=== PATIENT | male | born 1960 | race Caucasian/White ===

== ENCOUNTER 2021-05-02 09:17 | Emergency (ER) | payer BC ==
[2021-05-02] MEDS ORDERED: IBUPROFEN 600 MG TAB PO STA (11:00)
[2021-05-02] MEDS ORDERED: ACETAMINOPHEN TAB 500 MG TAB PO STA (11:00)
--- NOTE | 2021-05-02 11:02 | ED ---
General Adult HPI - General Chief complaint: Upper Respiratory Infection Stated complaint: Covid + Time Seen by Provider: 05/02/21 09:55 Source: patient Mode of arrival: ambulatory Limitations: no limitations - History of Present Illness Initial comments: 60-year-old male presents to the emergency room for antibody infusion. Patient reports he developed symptoms of COVID-19 last Saturday or about 5 days ago. States that he tested positive over the weekend at urgent care. Patient states that he just doesn't seem to be getting better and heard the infusion could help. Patient denies shortness of breath. He has cough and congestion. He has body aches. He has not had Motrin or Tylenol today.Patient has no other complaints at this time including shortness of breath, chest pain, abdominal pain, nausea or vomiting, headache, or visual changes. - Related Data Home Medications Medication Instructions Recorded Confirmed No Known Home Medications 05/02/21 05/02/21 Allergies Allergy/AdvReac Type Severity Reaction Status Date / Time No Known Allergies Allergy Verified 05/02/21 10:40 Review of Systems ROS Statement: Those systems with pertinent positive or pertinent negative responses have been documented in the HPI. ROS Other: All systems not noted in ROS Statement are negative. Past Medical History Past Medical History: No Reported History History of Any Multi-Drug Resistant Organisms: None Reported Past Surgical History: No Surgical Hx Reported Past Psychological History: No Psychological Hx Reported Smoking Status: Current every day smoker Past Alcohol Use History: Rare Past Drug Use History: None Reported General Exam Limitations: no limitations General appearance: alert, in no apparent distress Head exam: Present: atraumatic Eye exam: Present: normal appearance, PERRL, EOMI. Absent: scleral icterus, conjunctival injection ENT exam: Present: normal exam, mucous membranes moist Neck exam: Present: normal inspection, full ROM. Absent: tenderness Respiratory exam: Present: normal lung sounds bilaterally. Absent: respiratory distress, wheezes Cardiovascular Exam: Present: regular rate, normal rhythm, normal heart sounds Course Vital Signs 05/02/21 09:44 Temperature 100.8 F H Pulse Rate 94 Respiratory 18 Rate Blood Pressure 126/81 O2 Sat by Pulse 98 Oximetry Medical Decision Making - Medical Decision Making Vitals are stable. Patient given Motrin and Tylenol for fever. Well-appearing on exam. Antibody infusion ordered and patient given it. Monitored for an hour afterwards. Discussed strict return parameters and follow up with his doctor. Disposition Clinical Impression: COVID Disposition: HOME SELF-CARE Condition: Good Instructions (If sedation given, give patient instructions): Coronavirus Disease 2019 (COVID-19) Additional Instructions: please follow-up with your doctor in one to 2 days. Take Motrin and Tylenol for pain. Drink plenty of fluids. Return to the emergency room for any worsening symptoms. Is patient prescribed a controlled substance at d/c from ED?: No Referrals: Torri Duvall MD [REFERRING] - 1-2 days Time of Disposition: 11:01
[2021-05-02] MEDS ORDERED: BAMLANIVIMAB (EUA) 700 MG, ETESEVIMAB (EUA) 1,400 MG in SODIUM CHLORIDE 0.9% 50 ML IVPB ONE (11:15)
[2021-05-02] MEDS ORDERED: SODIUM CHLORIDE 0.9% 50 ML IVPB ONE (11:15)
[2021-05-02 13:10] VITALS: BP 113/68; PULSE 76; RESP 18; TEMP 98.8
== END 2021-05-02 13:13 | disposition home or self-care (01) ==
LOC: EC 09:17
DX: U07.1 COVID-19 (principal); F17.200 Nicotine dependence, unspecified, uncomplicated
CPT/HCPCS: 99283; J3490

== ENCOUNTER 2021-08-01 01:14 | Observation (INO) | payer BC ==
[2021-08-01] MEDS ORDERED: MORPHINE SULFATE 4 MG/ML SYRINGE IV STA (05:43)
[2021-08-01 06:08] LABS: Basophils # (A) 0.1 k/uL (0-0.2); Basophils % (A) 1 %; Eosinophils # (A) 0.6 k/uL (0-0.7); Eosinophils % (A) 8 %; HCT 46.7 % (39.0-53.0); Lymphocytes % (A) 14 %; MCH 31.9 pg (25.0-35.0); MCHC 34.2 g/dL (31.0-37.0); MCV 93.3 fL (80.0-100.0); Mean Platelet Volume 8.9; Monocytes # (A) 0.5 k/uL (0-1.0); Monocytes % (A) 6 %; Neutrophils % (A) 70 %; Platelet Count 197 k/uL (150-450); RDW 12.1 % (11.5-15.5); WBC 7.1 k/uL (3.8-10.6)
--- NOTE | 2021-08-01 06:16 | CT ---
EXAMINATION TYPE: CT abdomen pelvis wo con DATE OF EXAM: 08/01/2021 HISTORY: abdominal pain, LLQ CT DLP: 579.5 mGycm. Automated Exposure Control for Dose Reduction was Utilized. TECHNIQUE: CT scan of the abdomen and pelvis is performed without oral or IV contrast. COMPARISON: NONE FINDINGS: Within the limitations of a non-contrast study, the following observations are made. LUNG BASES: No significant abnormality is appreciated. LIVER/GB: No significant abnormality is appreciated. PANCREAS: No significant abnormality is seen. SPLEEN: No significant abnormality is seen. ADRENALS: No significant abnormality is seen. KIDNEYS: No renal stones or hydronephrosis is seen bilaterally. BOWEL: Evaluation of bowel slightly suboptimal due to lack of enteric contrast. Stomach slightly subo ptimally evaluated due to poor distention. No suspicious small or large bowel dilatation is seen. Ter [place] ileum appears within normal limits coronal image 40. Normal-appearing appendix inferiorly from base of cecum identified. There are few diverticula in the sigmoid colon. GENITAL ORGANS: No gross abnormality seen. LYMPH NODES: No greater than 1cm abdominal or pelvic lymph nodes are appreciated. OSSEOUS STRUCTURES: [id number] multilevel spurring in the spine. OTHER: There is moderate to large size fat-containing inguinal hernia containing fat and tiny mesente hugh vessels. There is mild to moderate ill-defined fluid and fat stranding beginning below the level of the proximal sigmoid colon extending along the entire course of the inguinal hernia. No free air i s seen. No well-formed fluid collection or abscess noted. Small to moderate-sized fat-containing right inguinal hernia is present without fat stranding. IMPRESSION: Moderate to large size left inguinal hernia containing moderate fat stranding extending u p to level of the proximal sigmoid colon. One must consider incarceration or strangulation given pauline ent's symptoms.
[2021-08-01 06:26] LABS: ALT 35 U/L (4-49); AST 36 U/L (17-59); African American GFR (CKD) >90 (>60 ml/min/1.73 sqM); Albumin 4.7 g/dL (3.5-5.0); Alkaline Phosphatase 70 U/L (38-126); Amylase 47 U/L (30-110); Anion Gap 10 mmol/L; Blood Urea Nitrogen 15 mg/dL (9-20); Calcium 9.3 mg/dL (8.4-10.2); Carbon Dioxide 22 mmol/L (22-30); Chloride 108 mmol/L (98-107); Glucose 129 mg/dL (74-99); Lipase 106 U/L (23-300); Non-African American GFR(CKD) >90 (>60 ml/min/1.73 sqM); Potassium 4.6 mmol/L (3.5-5.1); Sodium 140 mmol/L (137-145)
[2021-08-01 07:28] LABS: C Reactive Protein 0.8 mg/dL (<1.0)
[2021-08-01] MEDS ORDERED: KETOROLAC 15 MG/ML 1 ML VIAL IVP STA (07:42)
[2021-08-01] MEDS ORDERED: SODIUM CHLORIDE 0.9% 1,000 ML IV ONE (07:53)
--- NOTE | 2021-08-01 08:01 | P.GSHP ---
History of Present Illness H&P Date: 08/01/21 Chief Complaint: Left sided abdominal pain This is a 60-year-old male who presented to the emergency room complaints of left-sided abdominal pain. Patient thought he was having a diverticulitis attack. Patient states he had pain for several days. He was started on Augment in by his family doctor. The pain persisted. Patient underwent CAT scan is found have an incarcerated left inguinal hernia with incarcerated fat within the hernia. Patient states he has left groin pain and left abdominal pain Past Medical History Past Medical History: No Reported History Additional Past Medical History / Comment(s): Diverticulitis History of Any Multi-Drug Resistant Organisms: None Reported Past Surgical History: No Surgical Hx Reported Past Psychological History: No Psychological Hx Reported Smoking Status: Former smoker Past Alcohol Use History: Rare Past Drug Use History: None Reported Medications and Allergies Home Medications Medication Instructions Recorded Confirmed Type No Known Home Medications 05/02/21 05/02/21 History Allergies Allergy/AdvReac Type Severity Reaction Status Date / Time No Known Allergies Allergy Verified 08/01/21 01:21 Surgical - Exam Vital Signs Temp Pulse Resp BP Pulse Ox 97.8 F 74 18 127/75 97 08/01/21 01:18 08/01/21 01:18 08/01/21 01:18 08/01/21 01:18 08/01/21 01:18 - General well developed, moderate distress - Eyes PERRL - ENT normal pinna - Neck no masses - Respiratory normal expansion - Cardiovascular Rhythm: regular - Abdomen Tenderness in left lower quadrant. There is exquisite tenderness over the left groin. Patient has an incarcerated left inguinal hernia Abdomen: soft Results - Labs 08/01/21 05:47 08/01/21 05:47 Abnormal Lab Results - Last 24 Hours (Table) 08/01/21 Range/Units 05:47 Chloride 108 H (98-107) mmol/L Glucose 129 H (74-99) mg/dL Diabetes panel 08/01/21 Range/Units 05:47 Sodium 140 (137-145) mmol/L Potassium 4.6 (3.5-5.1) mmol/L Chloride 108 H (98-107) mmol/L Carbon Dioxide 22 (22-30) mmol/L BUN 15 (9-20) mg/dL Creatinine 0.88 (0.66-1.25) mg/dL Glucose 129 H (74-99) mg/dL Calcium 9.3 (8.4-10.2) mg/dL AST 36 (17-59) U/L ALT 35 (4-49) U/L Alkaline Phosphatase 70 (38-126) U/L Total Protein 8.0 (6.3-8.2) g/dL Albumin 4.7 (3.5-5.0) g/dL Calcium panel 08/01/21 Range/Units 05:47 Calcium 9.3 (8.4-10.2) mg/dL Albumin 4.7 (3.5-5.0) g/dL Pituitary panel 08/01/21 Range/Units 05:47 Sodium 140 (137-145) mmol/L Potassium 4.6 (3.5-5.1) mmol/L Chloride 108 H (98-107) mmol/L Carbon Dioxide 22 (22-30) mmol/L BUN 15 (9-20) mg/dL Creatinine 0.88 (0.66-1.25) mg/dL Glucose 129 H (74-99) mg/dL Calcium 9.3 (8.4-10.2) mg/dL Adrenal panel 08/01/21 Range/Units 05:47 Sodium 140 (137-145) mmol/L Potassium 4.6 (3.5-5.1) mmol/L Chloride 108 H (98-107) mmol/L Carbon Dioxide 22 (22-30) mmol/L BUN 15 (9-20) mg/dL Creatinine 0.88 (0.66-1.25) mg/dL Glucose 129 H (74-99) mg/dL Calcium 9.3 (8.4-10.2) mg/dL Total Bilirubin 1.0 (0.2-1.3) mg/dL AST 36 (17-59) U/L ALT 35 (4-49) U/L Alkaline Phosphatase 70 (38-126) U/L Total Protein 8.0 (6.3-8.2) g/dL Albumin 4.7 (3.5-5.0) g/dL Assessment and Plan Assessment: Incarcerated left inguinal hernia with incarcerated fat. Patient is very uncomfortable. He'll undergo open repair today.
[2021-08-01] MEDS ORDERED: ONDANSETRON 4 MG/2 ML VIAL IVP PRN (08:10)
[2021-08-01] MEDS ORDERED: NALOXONE 0.4 MG/ML 1 ML VIAL IV PRN (08:10)
--- NOTE | 2021-08-01 08:10 | ED ---
Abdominal Pain HPI - General Chief Complaint: Abdominal Pain Stated Complaint: Abdominal Pain Time Seen by Provider: 08/01/21 05:26 Source: patient Mode of arrival: ambulatory Limitations: no limitations - History of Present Illness Initial Comments: This patient is a 60-year-old man who presents to be evaluated for what he believes is flareup of diverticulitis. The patient states that he has been having left lower quadrant pain going back a few days. He was seen by the [facility] and started antibiotics and has been basically sticking to clear liquids. He states the pain has not been helped and in fact seems to be worse. He is had some nausea. No fever or chills. No change in bowel movements. Patient denies pain or mass in the scrotum or testicles. MD Complaint: abdominal pain -: days(s) Location: LLQ Radiation: none Migration to: no migration Severity: moderate Quality: aching Consistency: constant Improves With: nothing Worsens With: movement Associated Symptoms: nausea - Related Data Previous Rx's Medication Instructions Recorded Docusate [Colace] 100 mg PO BID #30 capsule 08/03/21 HYDROcodone/APAP 7.5-325MG [[place] 1 tab PO Q6HR PRN 3 Days #12 tab 08/03/21 7.5-325] Allergies Allergy/AdvReac Type Severity Reaction Status Date / Time No Known Allergies Allergy Verified 08/01/21 10:45 Review of Systems ROS Statement: Those systems with pertinent positive or pertinent negative responses have been documented in the HPI. ROS Other: All systems not noted in ROS Statement are negative. Constitutional: Denies: fever, chills Respiratory: Denies: cough, dyspnea Cardiovascular: Denies: chest pain, palpitations, edema Gastrointestinal: Reports: abdominal pain, nausea. Denies: vomiting, diarrhea, constipation, melena, hematochezia Genitourinary: Denies: dysuria, hematuria, testicular pain, testicular mass Musculoskeletal: Denies: back pain Skin: Denies: rash Neurological: Denies: headache Past Medical History Past Medical History: No Reported History Additional Past Medical History / Comment(s): Diverticulitis History of Any Multi-Drug Resistant Organisms: None Reported Past Surgical History: No Surgical Hx Reported Past Psychological History: No Psychological Hx Reported Smoking Status: Former smoker Past Alcohol Use History: Rare Past Drug Use History: None Reported General Exam Limitations: no limitations General appearance: alert, in no apparent distress Head exam: Present: atraumatic, normocephalic Eye exam: Present: normal appearance. Absent: scleral icterus, conjunctival injection Respiratory exam: Present: normal lung sounds bilaterally. Absent: respiratory distress, wheezes, rales, rhonchi, stridor Cardiovascular Exam: Present: regular rate, normal rhythm, normal heart sounds. Absent: systolic murmur, diastolic murmur, rubs, gallop GI/Abdominal exam: Present: soft, tenderness. Absent: distended, guarding, rebound, rigid, mass, pulsatile mass, hernia Extremities exam: Present: normal inspection, normal capillary refill. Absent: pedal edema, calf tenderness Back exam: Present: normal inspection. Absent: CVA tenderness (R), CVA tenderness (L) Neurological exam: Present: alert Skin exam: Present: warm, dry, intact, normal color. Absent: rash Course Vital Signs 08/01/21 08/01/21 08/01/21 01:18 05:25 06:15 Temperature 97.8 F 97.8 F Pulse Rate 74 61 67 Pulse Rate [ Right Sitting Pulse Oximetery ] Respiratory 18 20 15 Rate Blood Pressure 127/75 124/77 113/70 Blood Pressure [Right Arm Sitting] O2 Sat by Pulse 97 99 98 Oximetry 08/01/21 08/01/21 07:38 10:49 Temperature 97.1 F L Pulse Rate 63 Pulse Rate [ 55 L Right Sitting Pulse Oximetery ] Respiratory 16 18 Rate Blood Pressure 114/76 Blood Pressure 124/65 [Right Arm Sitting] O2 Sat by Pulse 97 97 Oximetry Medical Decision Making - Lab Data Result diagrams: 08/03/21 04:09 08/01/21 05:47 Lab Results 08/01/21 08/01/21 08/01/21 Range/Units 05:47 05:47 05:47 WBC 7.1 (3.8-10.6) k/uL RBC 5.00 (4.30-5.90) m/uL Hgb 16.0 (13.0-17.5) gm/dL Hct 46.7 (39.0-53.0) % MCV 93.3 (80.0-100.0) fL MCH 31.9 (25.0-35.0) pg MCHC 34.2 (31.0-37.0) g/dL RDW 12.1 (11.5-15.5) % Plt Count 197 (150-450) k/uL MPV 8.9 Neutrophils % 70 % Lymphocytes % 14 % Monocytes % 6 % Eosinophils % 8 % Basophils % 1 % Neutrophils # 5.0 (1.3-7.7) k/uL Lymphocytes # 1.0 (1.0-4.8) k/uL Monocytes # 0.5 (0-1.0) k/uL Eosinophils # 0.6 (0-0.7) k/uL Basophils # 0.1 (0-0.2) k/uL Sodium 140 (137-145) mmol/L Potassium 4.6 (3.5-5.1) mmol/L Chloride 108 H (98-107) mmol/L Carbon Dioxide 22 (22-30) mmol/L Anion Gap 10 mmol/L BUN 15 (9-20) mg/dL Creatinine 0.88 (0.66-1.25) mg/dL Est GFR (CKD-EPI)AfAm >90 (>60 ml/min/1.73 sqM) Est GFR (CKD-EPI)NonAf >90 (>60 ml/min/1.73 sqM) Glucose 129 H (74-99) mg/dL Plasma Lactic Acid [place] 1.0 (0.7-2.0) mmol/L Calcium 9.3 (8.4-10.2) mg/dL Total Bilirubin 1.0 (0.2-1.3) mg/dL AST 36 (17-59) U/L ALT 35 (4-49) U/L Alkaline Phosphatase 70 (38-126) U/L C-Reactive Protein 0.8 (<1.0) mg/dL Total Protein 8.0 (6.3-8.2) g/dL Albumin 4.7 (3.5-5.0) g/dL Amylase 47 (30-110) U/L Lipase 106 (23-300) U/L Disposition Clinical Impression: Abdominal pain, Inguinal hernia Disposition: ADMITTED IP TO THIS [facility] Condition: Stable
[2021-08-01] MEDS ORDERED: LACTATED RINGERS 1,000 ML IV ONE ×2 (10:54→14:14)
[2021-08-01] MEDS ORDERED: ONDANSETRON 4 MG/2 ML VIAL IVP ONE (11:00)
[2021-08-01] MEDS ORDERED: DEXAMETHASONE SOD PHOSPHATE 4 MG/ML 1 ML VIAL IVP ONE (11:00)
[2021-08-01 11:01] LABS: Glucose,Whole Blood 88 mg/dL (75-99)
[2021-08-01] MEDS ORDERED: HEPARIN SODIUM,PORCINE/PF 5,000 UNIT/0.5 ML SYRINGE SQ ONE (11:23)
[2021-08-01] MEDS ORDERED: MIDAZOLAM 2 MG/2 ML VIAL IVP ONE (11:29)
[2021-08-01] MEDS ORDERED: GLYCOPYRROLATE 0.2 MG/ML 2 ML VIAL ONE (12:07)
[2021-08-01] MEDS ORDERED: SUCCINYLCHOLINE CHLORIDE 100 MG/5 ML SYR IV ONE (12:07)
[2021-08-01] MEDS ORDERED: PROPOFOL 10 MG/ML 20 ML VIAL IV ONE (12:07)
[2021-08-01] MEDS ORDERED: NEOSTIGMINE 1 MG/ML 10 ML VIAL ONE (12:07)
[2021-08-01] MEDS ORDERED: KETAMINE 10 MG/ML 20 ML VIAL ONE (12:07)
[2021-08-01] MEDS ORDERED: LIDOCAINE 1% INJ 10MG/ML (20 ML MDV) ONE (12:07)
[2021-08-01] MEDS ORDERED: fentaNYL (PF) 50 MCG/ML 2 ML AMP ONE (12:07)
[2021-08-01] MEDS ORDERED: ROCURONIUM 10 MG/ML (5 ML VIAL) IV ONE (12:07)
[2021-08-01] MEDS ORDERED: BUPIVACAINE (PF) 0.25% 30 ML VIAL SQ ONE ×2 (12:32→12:48)
--- NOTE | 2021-08-01 12:56 | P.OP ---
Date of Procedure: 08/01/21 Preoperative Diagnosis: Incarcerated left inguinal hernia Postoperative Diagnosis: Incarcerated left inguinal hernia with omentum Procedure(s) Performed: (Repair of incarcerated inguinal hernia with Prolene hernia mesh system plug Anesthesia: BHARATH Surgeon: Cuco Santillan Estimated Blood Loss (ml): 5 Pathology: other (Incarcerated omentum/hernia sac) Condition: stable Disposition: PACU Description of Procedure: The patient's placed on the operating table in supine position. He received general endotracheal tube anesthesia. His abdomen was prepped and draped usual fashion. Standard left inguinal hernia incision was made. Subcutaneous tissue divided with cautery. The fascia external oblique was exposed. A ke in the fascia was made and then the fascia was opened metastases months scissors. The incarcerated hernia was seen. The cord structures were dissected in a rubber Eugene drains placed core structures. The hernia sac was then dissected free from the cord structure. The hernia sac was opened. There was ischemic omentum within the hernia sac. The incarcerated omentum was then transected with a mean hemostats and sent to pathology. The omentum was ligated with 2-0 silk suture. The hernia sac was then removed under high ligation. Hernia sac was transected with a hemostat. Sent to pathology the hernia sac was oversewn with 2-0 Vicryl suture. Next the preperitoneal space was opened with blunt finger dissection and then the large Prolene hernia mesh plug was placed. . The inferior leads expanded. The superior leaf was then attached to the pubic tubercle medially with 2-0 Prolene suture. The lateral leaf was incised and wrapped around the cord structures and secured with 2-0 Prolene suture. Brisa's fascia closed with 0 Vicryl. Skin was closed with eduarda. Patient top she will was sent to recovery in stable condition.
[2021-08-01] MEDS ORDERED: MORPHINE SULFATE 4MG/4ML SYRG IVP ONE (13:33)
[2021-08-01] MEDS ORDERED: KETOROLAC 15 MG/ML 1 ML VIAL IVP ONE (14:06)
[2021-08-01] MEDS: SODIUM CHLORIDE 0.9% 1,000 ML IV SCH ×2 (15:00→17:14)
[2021-08-01] MEDS: PANTOPRAZOLE 40 MG/10 ML VIAL IV SCH (15:01)
[2021-08-01] MEDS: HYDROmorphone 1 MG/ML 1 ML SYRINGE IVP PRN ×2 (17:11→20:20)
[2021-08-01 18:38] LABS: Appearance,Urine Clear (Clear); Bilirubin,Urine Negative (Negative); Blood,Urine Negative (Negative); Color,Urine Yellow; Glucose,Urine (UA) Negative (Negative); Ketones,Urine Trace (Negative); Leukocyte Esterase,Urine Negative (Negative); Nitrite,Urine Negative (Negative); Protein,Urine Negative (Negative); Specific Gravity,Urine 1.029 (1.001-1.035); Urobilinogen,Urine <2.0 mg/dL (<2.0)
[2021-08-02] MEDS: HYDROmorphone 1 MG/ML 1 ML SYRINGE IVP PRN ×7 (00:04→20:24)
[2021-08-02] MEDS: SODIUM CHLORIDE 0.9% 1,000 ML IV SCH ×2 (03:02→09:35)
[2021-08-02] MEDS: PANTOPRAZOLE 40 MG/10 ML VIAL IV SCH (07:10)
[2021-08-02] MEDS ORDERED: MORPHINE SULFATE 4 MG/ML SYRINGE IVP PRN (07:15)
[2021-08-02] MEDS: HYDROcodone/APAP 5-325MG 1 EACH TAB PO PRN ×3 (10:45→22:47)
--- NOTE | 2021-08-02 13:19 | P.PN ---
Subjective Progress Note Date: 08/02/21 CHIEF COMPLAINT: Incarcerated left inguinal hernia HISTORY OF PRESENT ILLNESS: Patient is status post repair of left incarcerated inguinal hernia with Prolene hernia mesh system plug. Patient is complaining of pain at incision site. He is requiring IV pain medication. Initially he did not want to take the IV Dilaudid and requested morphine. He reports the morphine is not working. He denies any nausea or vomiting. No flatus or bowel movement. He is having a regular diet. Afebrile. PHYSICAL EXAM: VITAL SIGNS: Reviewed. GENERAL: Well-developed in no acute distress. HEENT: No sclera icterus. Extraocular movements grossly intact. Moist buccal mucosa. Head is atraumatic, normocephalic. ABDOMEN: Soft. Nondistended. Nontender. Incision site clean dry and intact. Minimal bruising noted along the left incision site. NEUROLOGIC: Alert and oriented. Cranial nerves II through XII grossly intact. ASSESSMENT: 1. Incarcerated left inguinal hernia status post repair of left incarcerated inguinal hernia with Prolene hernia mesh system plug PLAN: -Continue pain management -Encourage patient to ambulate -Hep-Lock IV fluids -Continue regular diet -Anticipate discharge home tomorrow Physician Medicare Coordinator note has been reviewed by physician. Signing provider agrees with the documented findings, assessment, and plan of care. Objective - Vital Signs Vital signs: Vital Signs Temp 98.0 F 08/02/21 07:22 Pulse 77 08/02/21 07:22 Resp 17 08/02/21 07:22 BP 142/74 08/02/21 07:22 Pulse Ox 98 08/02/21 07:22 Intake & Output 08/01/21 08/02/21 08/02/21 18:59 06:59 18:59 Intake Total 1530 Output Total 20 Balance 1510 Weight 81.647 kg Intake: IV 1050 Oral 480 Output: Estimated Blood Loss 20 Other: Voiding Method Toilet # Voids 1 2 # Bowel Movements 0 - Labs CBC & Chem 7: 08/01/21 05:47 08/01/21 05:47 Labs: Abnormal Lab Results - Last 24 Hours (Table) 08/01/21 Range/Units 17:15 Urine Ketones Trace H (Negative)
[2021-08-03 02:49] VITALS: RESP 16
[2021-08-03] MEDS: HYDROcodone/APAP 5-325MG 1 EACH TAB PO PRN ×2 (04:59→10:03)
[2021-08-03 07:52] VITALS: BP 143/76; PULSE 67; TEMP 98.2
[2021-08-03] MEDS: PANTOPRAZOLE 40 MG/10 ML VIAL IV SCH (08:38)
[2021-08-03 09:07] LABS: Basophils # (A) 0.04 X 10*3/uL (0.00-0.10); Basophils % (A) 0.7 %; Eosinophils # (A) 0.13 X 10*3/uL (0.04-0.35); Eosinophils % (A) 2.2 %; HCT 37.5 % (39.6-50.0); HGB 12.5 g/dL (13.0-17.0); Immature Grans, Automated 0.2 %; Lymphocytes # (A) 1.23 X 10*3/uL (0.90-5.00); Lymphocytes % (A) 20.7 %; MCH 31.2 pg (27.0-32.0); MCHC 33.3 g/dL (32.0-37.0); MCV 93.5 fL (80.0-97.0); Mean Platelet Volume 11.7 fL (9.5-12.2); Monocytes # (A) 0.61 X 10*3/uL (0.20-1.00); Monocytes % (A) 10.3 %; NRBC Per 100 WBC 0 /100 WBCS (0.0-0.0); Neutrophils # (A) 3.91 X 10*3/uL (1.80-7.70); Neutrophils % (A) 65.9 %; Platelet Count 166 X 10*3/uL (140-440); RBC 4.01 X 10*6/uL (4.40-5.60); RDW 12.3 % (11.5-14.5); WBC 5.93 X 10*3/uL (4.50-10.00)
--- NOTE | 2021-08-03 10:46 | P.DS ---
Providers Date of admission: 08/01/21 08:12 Expected date of discharge: 08/03/21 Attending physician: Cuco Santillan Primary care physician: Stated None Hospital Course: Discharge diagnosis 1. Incarcerated left inguinal hernia status post repair of left incarcerated inguinal hernia with Prolene hernia mesh system plug Hospital course This is a 60-year-old male who presented to the emergency room complaints of left-sided abdominal pain. Patient thought he was having a diverticulitis attack. Patient states he had pain for several days. He was started on Augmentin by his family doctor. The pain persisted. Patient underwent CAT scan is found have an incarcerated left inguinal hernia with incarcerated fat within the hernia. Patient is status post repair of left incarcerated inguinal hernia with Prolene hernia mesh system plug. Patient is tolerating diet. His pain is controlled. He is up and ambulating. He is having flatus. He is afebrile. Patient does have some minimal bruising located at the lateral aspect of the incision on the left. Otherwise incision site is clean dry and intact. Patient is stable for discharge. Please refer to chart for any further details. Physician Sonography Technician note has been reviewed by physician. Signing provider agrees with the documented findings, assessment, and plan of care. Patient Condition at Discharge: Stable Plan - Discharge Summary Discharge Rx Participant: Yes New Discharge Prescriptions: New HYDROcodone/APAP 7.5-325MG [[place] 7.5-325] 1 tab PO Q6HR PRN 3 Days #12 tab PRN Reason: Pain Docusate [Colace] 100 mg PO BID #30 capsule Discontinued Amoxic-Pot Clav 875-125Mg [Augmentin 875-125] 1 tab PO BID Discharge Medication List Docusate [Colace] 100 mg PO BID #30 capsule 08/03/21 [Rx] HYDROcodone/APAP 7.5-325MG [[place] 7.5-325] 1 tab PO Q6HR PRN 3 Days #12 tab 08/03/21 [Rx] Follow up Appointment(s)/Referral(s): Susie Lutz MD [STAFF PHYSICIAN] - 1 Week Cuco Santillan MD [STAFF PHYSICIAN] - 1 Week Patient Instructions/Handouts: Abdominal Pain (ED) Activity/Diet/Wound Care/Special Instructions: No driving while taking [place] No lifting over 20 pounds You may shower. No soaking or tub baths for 2 weeks Very light activity until you are reevaluated at your follow up appointment with your surgeon Discharge Disposition: HOME SELF-CARE
== END 2021-08-03 12:27 | disposition home or self-care (01) ==
LOC: EC 01:14 → 4SSUR 08:12
PROVIDERS: ADMIT Surgery; ATTEND Surgery
DX: K40.30 Unilateral inguinal hernia, with obstruction, without gangrene, not specified as recurrent (principal); K57.92 Diverticulitis of intestine, part unspecified, without perforation or abscess without bleeding; Z87.891 Personal history of nicotine dependence
CPT/HCPCS: 96374; 96375; 99285; 36415; 80053; 82150; 83605; 83690; 85025 ×2; 86140; 81003; 88302; 74176; 49507; G0378 ×3; C1781; J2250; J2270 ×3; J1100; J2710; J0690; J2405; J2001; J3010; J1170 ×2; J1885; J0330; J2704; C9113 ×2; J1790